=== PATIENT | female | born 1970 | race African-American/Black ===

== ENCOUNTER 2022-02-16 15:46 | Emergency (ER) | payer OTHER ==
[2022-02-16] MEDS ORDERED: Ondansetron 4 MG/2 ML SDV IVPUSH ONE (16:36)
[2022-02-16] MEDS ORDERED: Sodium Chloride 0.9% 1,000 ML IV STA (16:36)
[2022-02-16] MEDS ORDERED: HYDROmorphone 0.5 MG/0.5 ML Syringe IVPUSH ONE ×2 (16:36→18:29)
[2022-02-16] MEDS ORDERED: Iopamidol 612 MG/ML 100 ML Bottle IVPUSH ONE (18:49)
[2022-02-16] MEDS ORDERED: Sodium Chloride 0.9% 10 ML Syringe FLUSH ONE (18:49)
[2022-02-16] MEDS ORDERED: Sodium Chloride 0.9% 100 ML IV SCH (19:00)
[2022-02-16] MEDS ORDERED: Ketorolac 30 MG/ML SDV IVPUSH ONE (19:44)
== END 2022-02-16 19:59 | disposition home or self-care (01) ==
LOC: JD.ED 15:46
DX: R10.2 Pelvic and perineal pain (principal); Z91.018 Allergy to other foods
CPT/HCPCS: 36415; 74177; 76830; 80053; 81001; 84703; 85025; 86140; 87210; 87808; 96374; 96375; 96376; 99284; J1170; J1885; J2405; J3490; J7030; Q9967

== ENCOUNTER 2022-12-02 16:50 | Emergency (ER) | payer OTHER ==
[2022-12-02] MEDS ORDERED: Sodium Chloride 0.9% 10 ML Syringe FLUSH PRN (17:33)
[2022-12-02] MEDS ORDERED: Ketorolac 30 MG/ML SDV IVPUSH ONE (18:13)
[2022-12-02] MEDS ORDERED: Ketorolac 30 MG/ML SDV IM ONE (19:59)
[2022-12-02 20:23] LABS: CORONAVIRUS COVID-19 NAA NEGATIVE (NEGATIVE)
== END 2022-12-02 21:19 | disposition home or self-care (01) ==
LOC: JD.ED 16:50
DX: R07.89 Other chest pain (principal); Z91.018 Allergy to other foods; Z79.899 Other long term (current) drug therapy; Z20.822 Contact with and (suspected) exposure to COVID-19
CPT/HCPCS: 0241U; 36415; 71045; 80053; 83735; 83880; 84484; 85025; 85610; 85730; 93005; 96372; 99285; J1885; 93010; 99284